=== PATIENT | male | born 1995 | race African-American/Black ===

== ENCOUNTER 2017-07-16 14:28 | Emergency (ER) | payer SELFPAY ==
[~2017-07-16] VITALS: Ht 175.3 cm; Wt 99.8 kg
[2017-07-16 14:30] VITALS: BP 147/64
[2017-07-16] MEDS ORDERED: ERYT1OIN6 OP (14:47)
--- NOTE | 2017-07-16 14:47 | PHYS DOC ---
Adult General Chief Complaint Chief Complaint: EYE PROBLEMS HPI HPI Patient is a 21 year old male who presents with stye to bilateral upper eyelids. Patient states the left eyelid he has had to stye for the last 2 months , he states for the last couple days he developed one on the left upper eyelid. Patient denies any vision loss. Review of Systems Review of Systems Constitutional: Denies fever or chills [] Eyes: Stye to bilateral upper eyelids. Denies change in visual acuity, redness, or eye pain [] Musculoskeletal: Denies back pain or joint pain [] Integument: Denies rash or skin lesions [] Neurologic: Denies headache, focal weakness or sensory changes [] All other systems were reviewed and found to be within normal limits, except as documented in this note. Allergies Allergies Allergies Coded Allergies Type Severity Reaction Last Updated Verified No Known Drug Allergies 07/16/17 No Physical Exam Physical Exam Constitutional: Well developed, well nourished, no acute distress, non-toxic appearance. [] HENT: Normocephalic, atraumatic, bilateral external ears normal, oropharynx moist, no oral exudates, nose normal. [] Eyes: PERRLA, EOMI, conjunctiva normal, no discharge. Bilateral mid upper eyelids with stye. The right upper eyelid appears to be an external stye, the left upper eyelid appears to be an internal stye. None of them is ready to be drained. Skin: Warm, dry, no erythema, no rash. [] Back: No tenderness, no CVA tenderness. [] Extremities: No tenderness, no cyanosis, no clubbing, ROM intact, no edema. [] Neurologic: Alert and oriented X 3, normal motor function, normal sensory function, no focal deficits noted. [] Psychologic: Affect normal, judgement normal, mood normal. [] EKG EKG [] Radiology/Procedures Radiology/Procedures [] Course & Med Decision Making Course & Med Decision Making Pertinent Labs and Imaging studies reviewed. (See chart for details) Patient has bilateral stye to the upper eyelids, right one being external and left on being internal sty. Discharged with erythromycin and provided glass forming engineer for follow-up. Warm compresses recommended. Dragon Disclaimer Dragon Disclaimer This electronic medical record was generated, in whole or in part, using a voice recognition dictation system. Departure Departure Impression: Primary Impression: Sty, external Additional Impression: Internal hordeolum of left eye Disposition: HOME, SELF-CARE Condition: STABLE Referrals: NO PCP (PCP) ELSIE COLLADO MD follow up in one week Patient Instructions: [place] Additional Instructions: You were seen with stye to bilateral upper eyelids. Continue applying warm compresses to the area. Use the prescribed eye ointment as ordered. Follow-up with the provided glass forming engineer in one week. Scripts Erythromycin Base (Erythromycin) 1 Gm Oint...g. 1 APPLIC OP Q4HRS W/A, #1 MISC Apply 1/2 inch to bilateral eyes every 4 hours for 7-10 days Prov: ROGER EDWARDS [employer] 07/16/17 Problem Qualifiers Primary Impression: Sty, external Laterality: right Eyelid: upper Qualified Codes: H00.011 - Hordeolum externum right upper eyelid Additional Impression: Internal hordeolum of left eye Eyelid: upper Qualified Codes: H00.024 - Hordeolum internum left upper eyelid ROGER EDWARDS [employer] Jul 16, 2017 14:47
== END 2017-07-16 14:50 | disposition home or self-care (01) ==
LOC: ER 14:28
DX: H00.011 Hordeolum externum right upper eyelid (principal); H00.024 Hordeolum internum left upper eyelid
CPT/HCPCS: 99283